=== PATIENT | female | born 1950 | race Caucasian/White ===

== ENCOUNTER 2017-07-01 09:38 | Day surgery (SDC) | payer BC ==
[2017-07-01] VITALS (8 sets, daily range): BP systolic 115–137; BP diastolic 58–68
[~2017-07-01] VITALS: Ht 170.2 cm; Wt 55.8 kg
--- NOTE | 2017-07-01 06:17 | Anethesia Preoperative Eval ---
Anesthesia Pre-op PMH/ROS General Date of Evaluation: Jul 01, 2017 Time of Evaluation: 06:17 Anesthesiologist: willam Mallampati Score Class I : Soft palate, uvula, fauces, pillars visible Class II: Soft palate, uvula, fauces visible Class III: Soft palate, base of uvula visible Class IV: Only hard plate visible Mallampati Classification: Class II Surgeon: dolly Diagnosis: gastric cancr Surgical Procedure: egd Anesthesia History: none Social History: smoking - nonsmoker Family History: no anesthesia problems Allergies: Coded Allergies: No Known Allergies (Unverified , 09/14/16) Medications: see eMAR Past Medical History Gastrointestinal/Genitourinary: Reports: other - gastric cancer Endocrine: Reports: DM Anesthesia Pre-op Phys. Exam Physician Exam Constitutional: NAD Neurologic: CN 2-12 intact Cardiovascular: RRR Respiratory: CTA Gastrointestinal: S/NT/ND Airway Exam Mallampati Score: Class II MO: full Neck: supple TMD: 2fb ROM: full Teeth: intact Anesthesia Pre-op A/P Studies Pre-op Studies: EKG - sinu bradycardia Risk Assessment & Plan Assessment: asa3 Plan: mac Status Change Before Surgery: No Pre-Antibiotics Drug: ALANNAH Granger Jul 01, 2017 06:17
[~2017-07-01 09:38] MED LIST: JANUMET 50-5001 EACH ORAL; NOVOLOG100 UNIT/3 SUBQ; OXYCODONE HCL10 MG ORAL; TRESIBA FL100 UNIT/1 SQ
[2017-07-01] MEDS ORDERED: Propofol 10mg/ml 20ml IV ONE (09:39)
[2017-07-01] MEDS ORDERED: Lidocaine 1% MPF 10mg/ml 5ml ONE (09:39)
--- NOTE | 2017-07-01 11:01 | Pre-Procedure Note/Attestation ---
Pre-Procedure Note/Attestation Complete Prior to Procedure Planned Procedure: not applicable Procedure Narrative: egd Indications for Procedure Pre-Operative Diagnosis: gastric cancer Attestation I attest that I discussed the nature of the procedure; its benefits; risks and complications; and alternatives (and the risks and benefits of such alternatives ), prior to the procedure, with the patient (or the patient's legal territory service representative). I attest that, if there was a reasonable possibility of needing a blood transfusion, the patient (or the patient's legal territory service representative) was given the [facility] standardized written summary, pursuant to the [place] Laura Blood Safety Act ([place] Health and Safety Code # 1645, as amended). I attest that I re-evaluated the patient just prior to the surgery and that there has been no change in the patient's H&P, except as documented below: LINDSEY BECERRA Jul 01, 2017 11:01
--- NOTE | 2017-07-01 11:02 | Short Stay Surgery H&P ---
History of Present Illness History of Present Illness Chief Complaint gastric cancer HPI Rashida Jenkins is a 67 year old female who was admitted on for Gastric Cancer Patient History Allergies: Coded Allergies: No Known Allergies (Unverified , 09/14/16) PAST MEDICAL HISTORY: (1) Diabetes mellitus (2) Abdominal pain (3) Gastric mass Past Surgeries: Social History: Medication History Scheduled PRN Oxycodone Hcl* (Oxycodone Hcl*), 20 MG ORAL Q4H PRN for For Pain, (Reported) Discontinued Medications Insulin Aspart* (Novolog*), 0 SUBQ TID, (Reported) Discontinued Reason: Pt stopped taking med Insulin Degludec (Tresiba Flextouch U-100), 30 UNIT SQ BEFORE BREAKFAST, ( Reported) Discontinued Reason: Pt stopped taking med Insulin Degludec (Tresiba Flextouch U-100), 40 UNIT SQ QHS, (Reported) Discontinued Reason: Pt stopped taking med Sitagliptin Phos/Metformin Hcl (Janumet 50-500 Mg Tablet), 1 TAB ORAL TWICE A DAY, (Reported) Discontinued Reason: Pt stopped taking med Review of Systems Cardiovascular: Reports: no symptoms Skeletal: Reports: no symptoms Gastrointestinal: Reports: gastro esophageal reflux disease Genitourinary: Reports: no symptoms Neurologic: Reports: no symptoms Endocrine: Reports: no symptoms Physical Exam Vital Signs Last Vital Signs Date Time Temp Pulse Resp B/P Pulse Ox O2 Delivery O2 Flow Rate FiO2 07/01/17 10:41 97.9 54 18 115/66 100 Room Air Skin: normal HENT: normal Heart: normal Lungs: normal Abdomen: normal Extremities: normal Plan Plan of Care egd Final Diagnosis: Attestation Are the patient's medical conditions optimized for surgery? Attestation Response: yes LINDSEY BECERRA Jul 01, 2017 11:02
[2017-07-01] MEDS ORDERED: DiphenhydrAMINE 50mg/ml Inj IVP PRN (11:45)
[2017-07-01] MEDS ORDERED: Atropine Inj 1mg/10ml Syr IV PRN (11:45)
[2017-07-01] MEDS ORDERED: Midazolam 2mg/2ml Inj IVP PRN (11:45)
[2017-07-01] MEDS ORDERED: Hydromorphone 0.5mg/0.5ml inj IVP PRN (11:45)
--- NOTE | 2017-07-01 11:49 | Immediate Post-Op Evaluation ---
Immediate Post-Op Evalulation Immediate Post-Op Evalulation Procedure: egd Date of Evaluation: Jul 01, 2017 Time of Evaluation: 11:52 IV Fluids: 0.9ns 100ml Blood Products: none Estimated Blood Loss: negligible Blood Pressure Systolic: 128 Blood Pressure Diastolic: 68 Pulse Rate: 51 Respiratory Rate: 18 O2 Sat by Pulse Oximetry: 100 Temperature (Fahrenheit): 97.6 Pain Score (1-10): 0 Nausea: No Vomiting: No Complications none Patient Status: awake, reacts, patent Hydration Status: adequate Drug: ALANNAH Granger Jul 01, 2017 11:49
--- NOTE | 2017-07-01 12:36 | 48 Hour Post Anesthesia Eval ---
Post Anesthesia Evaluation Procedure: egd Date of Evaluation: Jul 01, 2017 Time of Evaluation: 12:26 Blood Pressure Systolic: 128 0: 64 Pulse Rate: 51 Respiratory Rate: 18 Temperature (Fahrenheit): 97.6 O2 Sat by Pulse Oximetry: 100 Airway: patent Nausea: No Vomiting: No Pain Intensity: 0 Hydration Status: adequate Cardiopulmonary Status: stable Mental Status/LOC: patient returned to baseline Post-Anesthesia Complications: none Follow-up care needed: N/A ALANNAH RAMOS Jul 01, 2017 12:36
--- NOTE | 2017-07-01 21:30 | Procedure Note ---
DATE OF PROCEDURE: 07/01/2017 SURGEON: Agusto Barnard M.D. PROCEDURE: Upper endoscopy with biopsy. ANESTHESIOLOGIST: Nimco Hernandez M.D. INSTRUMENT: Olympus adult flexible upper endoscope. INDICATION: History of gastric cancer status post partial gastrectomy. The patient has persistent symptoms with nausea and vomiting. The patient was referred for reevaluation for possible recurrent malignancy. REASON FOR PROCEDURE: The procedure, risks, benefits, and possible consequences, including hemorrhage, aspiration, perforation and infection, and alternative treatments, were explained to the patient/legal guardian by Dr. Agusto Barnard and the patient/legal guardian understood and accepted these risks. DESCRIPTION OF PROCEDURE: After informed consent was obtained and the patient was adequately sedated, Olympus upper endoscope was introduced from the mouth into the esophagus. GE junction was found to be about 35 cm from the incisors. The patient had evidence of gastric pouch that measured roughly about 5 cm and there was anastomosis. We were able to cannulate or intubate both afferent and efferent loops of this Taya-en-Y loop. There was no evidence of active bleeding. At the anastomosis, there were friable tissue most probably from bile reflux, we biopsied that area. The patient tolerated the procedure well without any complication. SUMMARY OF FINDINGS: 1. History of partial gastrectomy, seems like a Taya-en-Y surgery with both afferent and efferent loops intubated without any complication. Friable tissue at the anastomosis status post biopsy. 2. A 5 cm gastric pouch. RECOMMENDATIONS: Follow up biopsies and treat accordingly. The patient to follow in the office for further workup of her symptoms. Agusto Barnard M.D. DR: NADIYA JOB#: [id number] CC:
--- NOTE | 2017-07-03 17:53 | Cardiology Report ---
APPROVED REPORT EKG Measurement Heart [id number] MS [id number] Sinus bradycardia Otherwise normal ECG
--- NOTE | 2017-07-05 10:24 | Endoscopy Procedure Note ---
Endoscopy Procedure Note Indication for Procedure: n/v Procedures Performed: EGD Operative Findings/Diagnosis: gastritis Specimen: yes Pt Tolerated Procedure Well: Yes Estimated Blood Loss: none Anesthesiologist: see chart Anesthesia: MAC Implant(s) used?: No 50 yrs or older w/o bx or poly: Not Applicable 10yrs. F/U not recommended: Not Applicable LINDSEY BECERRA Jul 05, 2017 10:24
== END 2017-07-01 12:50 | disposition home or self-care (01) ==
LOC: GAS 09:38
DX: Z85.028 Personal history of other malignant neoplasm of stomach (principal); Z90.3 Acquired absence of stomach [part of]; E11.9 Type 2 diabetes mellitus without complications; Z79.4 Long term (current) use of insulin; Z79.84 Long term (current) use of oral hypoglycemic drugs; K21.9 Gastro-esophageal reflux disease without esophagitis
CPT/HCPCS: 43239; 82962; 93005; J2704; 94003; 94150

== ENCOUNTER → 2017-08-04 | Outpatient (CLI) | payer BC ==
--- NOTE | 2017-08-05 10:37 | Diagnostic Imaging Report ---
Indications: FALL Technique: Two views of the left femur Comparison: None Findings: No acute fractures. No dislocations. No radiopaque foreign body. Impression: Negative
== END | disposition home or self-care (01) ==
LOC: RAD 16:41
DX: M25.559 Pain in unspecified hip (principal)